=== PATIENT | female | born 1950 | race Caucasian/White ===

== ENCOUNTER 2024-01-07 15:15 | Outpatient (CLI) | payer OTHER | END 2024-01-07 15:16 | disposition home or self-care (01) | LOC: CSHCP 15:15 | PROVIDERS: ATTEND Internal Medicine Pulmonary Disease | DX: J45.32 Mild persistent asthma with status asthmaticus (principal) | CPT/HCPCS: 94010; 94726; 94729; 94760 ==

== ENCOUNTER 2024-08-31 08:23 | Day surgery (SDC) | payer MEDICARE ==
[2024-08-31] MEDS ORDERED: Sodium Bicarbonate 2.5 MEQ/5 ML SDV ONE (08:46)
[2024-08-31] MEDS ORDERED: Lidocaine 1% PF 5 ML VIAL ONE (08:46)
[2024-08-31 10:43] VITALS: BP 142/102; TEMP 98.7
[2024-08-31] MEDS ORDERED: Iopamidol-M 300 61% 15 ML VIAL ONE (10:56)
== END 2024-08-31 11:23 | disposition home or self-care (01) ==
LOC: CSHRAD 08:23
PROVIDERS: ATTEND Anesthesiology
PROC: B02BY0Z Computerized Tomography (CT Scan) of Spinal Cord using Other Contrast, Unenhanced and Enhanced (ICD-10-PCS; principal; 2024-08-31)
DX: M96.1 Postlaminectomy syndrome, not elsewhere classified (principal); M54.50 Low back pain, unspecified; M48.05 Spinal stenosis, thoracolumbar region
CPT/HCPCS: 62284; 72070; 72100; 72129; 72132; 77003; Q9967